=== PATIENT | female | born 1955 | race Caucasian/White ===

== ENCOUNTER → 2019-10-16 07:56 | Outpatient (BNVA) | payer MEDICARE, OTHER, SELFPAY | PROVIDERS: Family Provider Nurse Practitioner Family; Visit Provider Nurse Practitioner Family | DX: E11.9 Type 2 diabetes mellitus without complications (principal) | CPT/HCPCS: 36415; 83036 ==

== ENCOUNTER 2020-06-06 12:43 | Emergency (ER) | payer MEDICARE, OTHER, SELFPAY ==
[2020-06-06 12:52] VITALS: BP 198/92; PULSE 53; RESP 14; TEMP 36.5; O2SAT 99; BMI 31.3
[2020-06-06 13:12] VITALS: PULSE 70
--- NOTE | 2020-06-06 13:14 | USCV_ITS ---
Teena Gusman Age: 64 Gender: F : 1955 Exam Date: 06/06/2020 13:50 Ordering Phys: Pedro Pablo Sears Technologist: Roula Parada Exam Location: [facility] – [place] Indication: SWELLING RT LEG. RT LOWER LEG IS RED. HISTORY: Swelling of Rt. Leg PROCEDURES: Venous duplex imaging was performed in only the right lower extremity. The following venous structures were evaluated: common femoral vein, profunda vein, proximal portion of the greater saphenous vein, superficial femoral vein, and the popliteal vein. In addition, the posterior tibial and peroneal trunk were evaluated. Serial compression, augmentation maneuvers, and spectral Doppler flow evaluation were performed. FINDINGS: Normal 2-D Doppler and augmentation and compressibility throughout the lower extremity venous structures. Additional imaging through the proximal calf veins also reveals no thrombus. Limited evaluation of the greater saphenous vein is patent with no thrombus. Hypoechic, round mass in the right inguinal angel. Mass measures 1.7 cm maximun diameter with increased vascularity. CONCLUSIONS No DVT right lower extremity. Suspicious for metastatic deposit or lymph node at right inguinal angel. Dr. Anjelica Gibbons DO (Electronically Signed) Final Date: 06 June 2020 14:25 S
--- NOTE | 2020-06-06 13:16 | W.ED.EXTPRO ---
HPI - Extremity Problem General: Chief complaint: Extremity Problem,Nontraumatic Stated complaint: RIGHT LEG PAIN Time Seen by Provider: 06/06/20 13:07 History of Present Illness: HPI Narrative: Patient arrives via [facility] with history of lower right leg swelling and pain from the groin down times few days. 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) Review of Systems Const: Denies: fever(s), chills or body aches Eyes: Denies: change in vision or blurry vision ENMT: Denies: throat pain or nasal congestion Card: Denies: chest pain or dyspnea on exertion Resp: Denies: dyspnea, productive cough or non-productive cough GI: Denies: abdominal pain, nausea or vomiting Musc: Reports: extremity pain (Right lower extremity swelling and pain from the groin down) Skin/Breast: Denies: rash Neuro: Denies: headache(s) Psych: Denies: anxiety or depression Román/Lymph: Denies: easy bruising PFSH ED PFSH: Medical History (Updated 06/06/20 @ 14:32 by CIERRA Frias) Anxiety Cancer, neuroendocrine, poorly differentiated Essential hypertension Hyperlipidemia Lymphedema Type 2 diabetes mellitus Vitamin D deficiency Surgical History (Updated 06/06/20 @ 11:24 by CIERRA Castrejon) Status post appendectomy Family History (Updated 06/06/20 @ 11:04 by Monisha Navas LPN) Other CAD (coronary artery disease) Diabetes Hypertension Stroke Social History (Updated 06/06/20 @ 11:04 by Monisha Navas LPN) Smoking and tobacco status: never smoked Alcohol intake: never Physical Exam Const: COMMON NORMALS: no acute distress, average body habitus and patient oriented x3 HENMT: COMMON NORMALS: normocephalic HEAD & SCALP: normal to inspection and normocephalic FACE & SINUS: normal facial exam Eye: COMMON NORMALS: conjunctivae normal GENERAL EYE: appearance normal, both eyes and all related structures CONJUNCTIVA: Yes conjunctivae normal Neck/C-Spine: COMMON NORMALS: no JVD Chest: COMMONS NORMALS: normal inspection of the chest Resp: COMMON NORMALS: normal respiratory effort and clear to auscultation bilaterally AUSCULTATION: clear to auscultation bilaterally Cardio: COMMON NORMALS: no JVD, regular rate and regular rhythm RATE: regular rate RHYTHM: regular rhythm GI: COMMON NORMALS: Normal to inspection, nondistended, normoactive bowel sounds present Extremity: COMMON NORMALS: full ROM NARRATIVE EXTREMITY EXAM: Right lower extremity has redness and swelling to the calf groin area tender from the groin down and also on the buttock area. Pulses are normal cap refill is fine neurovascular status intact Neuro: COMMON NORMALS: patient oriented x3 Course Vital Signs: Vital signs: Vital Signs Temperature 97.7 F 06/06/20 12:52 Pulse Rate 66 06/06/20 14:40 Respiratory Rate 18 06/06/20 14:40 Blood Pressure 197/108 06/06/20 14:40 Pulse Oximetry 98 06/06/20 14:40 MDM - Extremity (Nontraumatic) MDM Narrative: Medical decision making narrative: Discussed ultrasound results with Dr. Peña. Discussed results with patient patient is contact her specialist in [place] today and get an appointment to have this mass evaluated patient is continued check blood pressure and blood sugars as she does presently Lab Data: Labs: Lab Results 06/06/20 06/06/20 Range/Units 13:23 13:23 WBC 6.6 (4.0-10.0) 10^3/ uL RBC 5.19 (4.1-5.3) 10^6/u L Hgb 15.5 H (11.5-15.3) g/dL Hct 46.5 (37.0-47.0) % MCV 89.6 (81-99) fL MCH 29.9 (28.0-34.0) pg MCHC 33.3 (30.0-36.0) g/dL RDW 12.6 (12.1-15.1) % Plt Count 145 (130-400) 10^3/c mm MPV 9.6 (7.4-10.4) fL Neut % (Auto) 61.2 % Lymph % (Auto) 27.3 % [place] % (Auto) 8.9 % Eos % (Auto) 1.7 % Baso % (Auto) 0.3 % Neut # (Auto) 4.01 (1.8-7.7) 10^3/u L Lymph # (Auto) 1.8 (0.8-4.8) 10^3/u L [place] # (Auto) 0.6 (0.2-0.9) 10^3/u L Eos # (Auto) 0.1 (0.0-0.8) 10^3/u L Baso # (Auto) 0.0 (0.0-0.1) 10^3/u L Nucleated RBC % (a uto) 0 % Nucleated RBCs # 0.0 /100WBC Sodium 138 (136-145) mmol/L Potassium 4.3 (3.5-5.1) mmol/L Chloride 100 (98-107) mmol/L Carbon Dioxide 27 (22-29) mmol/L Anion Gap 15.3 (5-19) BUN 10 (8-23) mg/dL Creatinine 0.6 (0.5-0.9) mg/dL GFR Calculation 100.0 (90-130) mL/min Glucose 128 H (65-115) mg/dL Calculated Osmolal ity 284 L (285-295) mOsm/k g Calcium 9.5 (8.5-10.5) mg/dL Total Bilirubin 0.4 (0.15-1.2) mg/dL AST 27 (0-32) U/L ALT 38 H (0-33) U/L Alkaline Phosphata se 92 (35-105) IU/L Total Protein 7.9 (6.6-8.7) g/dL Albumin 4.7 (3.5-5.2) g/dL Globulin 3.2 (1.3-4.6) g/dL Discharge Plan Discharge Patient Disposition: Home Clinical Impression: Mass Condition: Stable Prescriptions: No Action 5 Different Herb Pills See Rx Instructions .ROUTE .COMPLEX RF: 0 turmeric 400 mg Capsule 400 mg PO PRN RF: 0 Discharge Orders: Discharge Order (Routine); Ordered 06/06/20 Ordered By: Pedro Pablo Sears Referrals: ELLI Sam, [employer] EXAMINER [Family Provider] - Discharge Diet: Usual diet Discharge Activity: Increase activity as tolerated Activity Restrictions/Additional Instructions: Need to contact your specialist in [place] today and get appointment set up to have this mass looked at. Continue to monitor blood pressure readings and blood sugar readings as you do. He have difficulties getting an appointment up in [place] or they will not return calls please contact us so we can help expedite things. Try to keep leg elevated and are wrapped with Virgilio wrap to help with the getting fluid ago back into the system. Discharge Date/Time: 06/06/20 14:42 Coding Level of Care Code ED Clother In for Chg Fwd Exam Comprehensive
[2020-06-06 13:20] VITALS: BP 186/96; PULSE 61; RESP 16; O2SAT 98
[2020-06-06 13:55] LABS: Basophils % 0.3 %; Eosinophils # 0.1 10^3/uL (0.0-0.8); Eosinophils % 1.7 %; Hematocrit 46.5 % (37.0-47.0); Hemoglobin 15.5 g/dL (11.5-15.3); Lymphocytes # 1.8 10^3/uL (0.8-4.8); Lymphocytes % 27.3 %; Mean Corpuscular HGB Conc 33.3 g/dL (30.0-36.0); Mean Corpuscular Hemoglobin 29.9 pg (28.0-34.0); Mean Corpuscular Volume 89.6 fL (81-99); Mean Platelet Volume 9.6 fL (7.4-10.4); Monocytes # 0.6 10^3/uL (0.2-0.9); Monocytes % 8.9 %; Neutrophils # 4.01 10^3/uL (1.8-7.7); Neutrophils % 61.2 %; Nucleated Red Blood Cells % 0 %; Platelet Count 145 10^3/cmm (130-400); Red Blood Count 5.19 10^6/uL (4.1-5.3); Red Cell Distribution Width 12.6 % (12.1-15.1); White Blood Count 6.6 10^3/uL (4.0-10.0)
[2020-06-06 13:59] LABS: Alanine Aminotransferase 38 U/L (0-33); Albumin Level 4.7 g/dL (3.5-5.2); Alkaline Phosphatase 92 IU/L (35-105); Anion Gap 15.3 (5-19); Aspartate Amino Transferase 27 U/L (0-32); Blood Urea Nitrogen 10 mg/dL (8-23); Calcium 9.5 mg/dL (8.5-10.5); Carbon Dioxide 27 mmol/L (22-29); Chloride 100 mmol/L (98-107); Globulin 3.2 g/dL (1.3-4.6); Glucose 128 mg/dL (65-115); Osmolality Calculated 284 mOsm/kg (285-295); Potassium 4.3 mmol/L (3.5-5.1); Sodium 138 mmol/L (136-145); Total Bilirubin 0.4 mg/dL (0.15-1.2); Total Protein 7.9 g/dL (6.6-8.7)
[2020-06-06 14:17] VITALS: BP 197/108; PULSE 66; O2SAT 95
[2020-06-06 14:40] VITALS: BP 197/108; PULSE 66; RESP 18; O2SAT 98
[2020-06-06 15:54] LABS: D Dimer 0.41 ug/mIFEU (0-0.59)
== END 2020-06-06 14:42 | disposition home or self-care (01) ==
PROVIDERS: Emergency Provider Nurse Practitioner Family; Family Provider Nurse Practitioner Family
DX: R22.41 Localized swelling, mass and lump, right lower limb (principal); I10 Essential (primary) hypertension; E78.5 Hyperlipidemia, unspecified; E11.9 Type 2 diabetes mellitus without complications
CPT/HCPCS: 12345; 36415; 80053; 85025; 85378; 93971; 99281; 99283